=== PATIENT | male | born 1970 | race Two or more races ===

== ENCOUNTER 2016-10-06 11:34 | Inpatient (IN) | payer OTHER ==
[2016-10-06 12:16] VITALS: BMI 24.3
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
[2016-10-06] MEDS ORDERED: guaiFENesin/D-METHORPHAN HB 10 ML UNIT-DOSE CUPS PO PRN (15:16)
[2016-10-06] MEDS ORDERED: chlordiazePOXIDE HCL 25 MG CAPSULE PO PRN (15:16)
[2016-10-06] MEDS ORDERED: MAGNESIUM HYDROX 2400MG/30ML ORAL SUSPENSION 30 ML CUP PO PRN (15:16)
[2016-10-06] MEDS ORDERED: LOPERAMIDE HCL 2 MG CAPSULE PO PRN (15:16)
[2016-10-06] MEDS ORDERED: P-EPHED 60MG/TRIPROLIDI 2.5MG TABLET PO PRN (15:16)
[2016-10-06] MEDS ORDERED: ACETAMINOPHEN 325 MG TABLET (FP) PO PRN (15:16)
[2016-10-06] MEDS ORDERED: MENTHOL/PHENOL 1 EACH UD MM PRN (15:16)
[2016-10-06] MEDS ORDERED: IBUPROFEN 400 MG TABLET (FP) PO PRN (15:16)
[2016-10-06] MEDS ORDERED: hydrOXYzine PAMOATE 25 MG CAPSULE (FP) PO PRN (15:16)
[2016-10-06] MEDS ORDERED: MAGNESIUM CITRATE 300 ML BOTTLE PO PRN (15:16)
[2016-10-06] MEDS ORDERED: METHADONE HCL 10 MG TABLET (FOR DETOX USE ONLY) PO ONE ×2 (17:00→23:00)
[2016-10-06] MEDS: chlordiazePOXIDE HCL 25 MG CAPSULE PO SCH ×2 (17:45→22:23)
[2016-10-06] MEDS: NICOTINE 21 MG/24 HOURS TOPICAL PATCH TD SCH (17:48)
[2016-10-06 19:12] LABS: HIV 1 & 2 AB NEGATIVE; HIV 1 AGp24 NEGATIVE
[2016-10-06] MEDS: THIAMINE HCL 100 MG TABLET (FP) PO SCH (22:24)
[2016-10-06] MEDS: diphenhydrAMINE HCL 50 MG CAPSULE PO PRN (22:24)
[2016-10-06] MEDS: RANITIDINE HCL 150 MG TABLET (FP) PO SCH (22:24)
[2016-10-06 23:59] LABS: URINE APPEARANCE CLEAR; URINE BILIRUBIN NEGATIVE (NEGATIVE); URINE COLOR LTYELLOW; URINE GLUCOSE (UA) NEGATIVE (NEGATIVE); URINE KETONE NEGATIVE (NEGATIVE); URINE LEUK ESTERASE NEGATIVE (NEGATIVE); URINE NITRITE NEGATIVE (NEGATIVE); URINE PROTEIN NEGATIVE (NEGATIVE); URINE UROBILINOGEN NEGATIVE E.U./dl (0.2-1.0)
[2016-10-07] LABS: URINE BLOOD 1+ (NEGATIVE)
[2016-10-07 00:03] LABS: URINE MUCUS RARE; URINE RBC 5 /hpf (0-3); URINE WBC 1 /hpf (3-5)
[2016-10-07] MEDS: chlordiazePOXIDE HCL 25 MG CAPSULE PO SCH ×4 (05:36→22:39)
[2016-10-07] MEDS ORDERED: METHADONE HCL 10 MG TABLET (FOR DETOX USE ONLY) PO SCH (10:00)
--- NOTE | 2016-10-07 10:01 | EKG ---
Test Reason : Blood Pressure : / mmHG Vent. Rate : 074 BPM Atrial Rate : 074 BPM P-R Int : 150 ms QRS Dur : 090 ms QT Int : 400 ms P-R-T Axes : 067 007 020 degrees QTc Int : 444 ms NORMAL SINUS RHYTHM NORMAL ECG NO PREVIOUS ECGS AVAILABLE Confirmed by KIN LOPEZ MD ([id number]) on 10/07/2016 10:00:55 AM Referred By: Haim Lagos Confirmed By:KIN LOPEZ MD
[2016-10-07 10:26] LABS: MCH 27.3 pg (25.7-33.7); MCHC 32.8 g/dl (32.0-35.9); MEAN CELL VOLUME 83.4 fl (80-96); MEAN PLT VOLUME 8.1 fl (7.5-11.1); PLATELET COUNT 302 K/MM3 (134-434); RDW 15.8 % (11.9-15.9); WHITE BLOOD COUNT 10.3 K/mm3 (4.0-10.0)
[2016-10-07 10:43] LABS: ALBUMIN 4.2 g/dl (3.4-5.0); ANION GAP 13 (8-16); BILIRUBIN,TOTAL 0.4 mg/dL (0.2-1.0); CALCIUM 9.3 mg/dL (8.5-10.1); CO2 26 mmol/L (21-32); CREATININE 1.1 mg/dL (0.7-1.3); GLUCOSE,RANDOM 112 mg/dL (74-106); SGOT/AST 14 U/L (15-37); SGPT/ALT 27 U/L (12-78); TOT PROT 7.8 g/dl (6.4-8.2)
[2016-10-07 10:44] LABS: ALK PHOS 59 U/L (45-117)
[2016-10-07] MEDS: RANITIDINE HCL 150 MG TABLET (FP) PO SCH ×2 (10:59→22:38)
[2016-10-07] MEDS: PRENATAL VITAMINS W/ FOLIC ACID TABLET (FP) PO SCH (10:59)
[2016-10-07] MEDS: LORATADINE 10 MG TABLET PO SCH (10:59)
[2016-10-07] MEDS: NICOTINE 21 MG/24 HOURS TOPICAL PATCH TD SCH (11:00)
--- NOTE | 2016-10-07 13:26 | PN ---
[facility] CIWA - CIWA Score Nausea/Vomitin-Mild Nausea/No Vomiting Muscle Tremors: 3 Anxiety: 4-Mod. Anxious/Guarded Agitation: 3 Paroxysmal Sweats: 3 Orientation: 0-Oriented Tacttile Disturbances: 0-None Auditory Disturbances: 0-None Visual Disturbances: 0-None Headache: 0-None Present CIWA-Ar Total Score: 14 S COWS - Scale Resting Pulse: 1= [place] 81-100 Sweatin=Flushed/Facial Moisture Restless Observation: 1= Difficult to Sit Still Pupil Size: 0= Normal to Room Light Bone or Joint Aches: 1= Mild Discomfort Runny Nose/ Eye Tearin= Runny Nose/Eyes GI Upset > 30mins: 2= Nausea/Diarrhea Tremor Observation of Outstretched Hands: 2= Slight Tremor Visible Yawning Observation: 1= 1-2x During Session Anxiety or Irritability: 2=Irritable/Anxious Goose Flesh Skin: 0=Smooth Skin COWS Score: 14 [facility] Progress Note (SOAP) Subjective: Anxiety,tremors,sweating,muscle aches,interrupted sleep,restless. Objective: 10/07/16 13:25 Last Vital Signs Temp Pulse Resp BP Pulse Ox 98.2 F 82 18 134/96 10/07/16 10:00 10/07/16 10:00 10/07/16 10:00 10/07/16 10:00 Laboratory Tests 10/06/16 10/06/16 10/07/16 15:59 20:33 06:10 WBC 10.3 H RBC 5.13 Hgb 14.0 Hct 42.8 MCV 83.4 MCHC 32.8 RDW 15.8 Plt Count 302 MPV 8.1 Sodium Potassium Chloride Carbon Dioxide Anion Gap BUN Creatinine Creat Clearance w eGFR Random Glucose Calcium Total Bilirubin AST ALT Alkaline Phosphatase Total Protein Albumin Urine Color Ltyellow Urine Appearance Clear Urine pH 6.0 Ur Specific [place] < 1.005 L Urine Protein Negative Urine Glucose (UA) Negative Urine Ketones Negative Urine Blood 1+ H Urine Nitrite Negative Urine Bilirubin Negative Urine Urobilinogen Negative Ur Leukocyte Esterase Negative Urine RBC 5 Urine WBC 1 Urine Mucus Rare HIV 1&2 Antibody Screen Negative HIV P24 Antigen Negative 10/07/16 06:10 WBC RBC Hgb Hct MCV MCHC RDW Plt Count MPV Sodium 138 Potassium 3.7 Chloride 99 Carbon Dioxide 26 Anion Gap 13 BUN 13 Creatinine 1.1 Creat Clearance w eGFR > 60 Random Glucose 112 H Calcium 9.3 Total Bilirubin 0.4 AST 14 L ALT 27 Alkaline Phosphatase 59 Total Protein 7.8 Albumin 4.2 Urine Color Urine Appearance Urine pH Ur Specific [place] Urine Protein Urine Glucose (UA) Urine Ketones Urine Blood Urine Nitrite Urine Bilirubin Urine Urobilinogen Ur Leukocyte Esterase Urine RBC Urine WBC Urine Mucus HIV 1&2 Antibody Screen HIV P24 Antigen labs noted Assessment: 10/07/16 13:25 Withdrawal sx. Plan: Continue detox
[2016-10-07] MEDS ORDERED: MOMETASONE FUROATE 110 MCG/IH INHALER IH SCH (13:30)
[2016-10-07] MEDS: FLUTICASONE PROP 0.05% 16 GM NASAL SPRAY NS SCH ×2 (14:30→22:38)
[2016-10-07] MEDS: ALBUTEROL SO4 6.7 GM HFA INHALER IH PRN ×2 (15:37→22:42)
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
[2016-10-07] MEDS: MAG HYDROX/AL HYDROX/SIMETH 30 ML UNIT-DOSE CUP PO PRN (18:16)
[2016-10-07] MEDS: MOMETASONE FUROATE 220 MCG/IH INHALER IH SCH (22:38)
[2016-10-07] MEDS: THIAMINE HCL 100 MG TABLET (FP) PO SCH (22:38)
[2016-10-08] MEDS: diphenhydrAMINE HCL 50 MG CAPSULE PO PRN ×2 (02:12→22:58)
[2016-10-08] MEDS: chlordiazePOXIDE HCL 25 MG CAPSULE PO SCH ×2 (05:55→10:49)
[2016-10-08] MEDS: PRENATAL VITAMINS W/ FOLIC ACID TABLET (FP) PO SCH (10:50)
[2016-10-08] MEDS: RANITIDINE HCL 150 MG TABLET (FP) PO SCH ×2 (10:50→22:56)
[2016-10-08] MEDS: LORATADINE 10 MG TABLET PO SCH (10:50)
[2016-10-08] MEDS: METHADONE HCL 5 MG TABLET (FOR DETOX USE ONLY) PO SCH (10:50)
[2016-10-08] MEDS: NICOTINE 21 MG/24 HOURS TOPICAL PATCH TD SCH (10:53)
[2016-10-08] MEDS: NAPHAZOLINE/PHENIRAMINE OPHTHALMIC 15 ML BOTTLE OU SCH ×4 (11:20→22:56)
[2016-10-08] MEDS: FLUTICASONE PROP 0.05% 16 GM NASAL SPRAY NS SCH ×2 (11:33→22:57)
[2016-10-08] MEDS: ALBUTEROL SO4 6.7 GM HFA INHALER IH PRN ×2 (11:35→17:53)
--- NOTE | 2016-10-08 13:24 | PN ---
[facility] CIWA - CIWA Score Nausea/Vomitin-Mild Nausea/No Vomiting Muscle Tremors: 3 Anxiety: 4-Mod. Anxious/Guarded Agitation: 3 Paroxysmal Sweats: 3 Orientation: 0-Oriented Tacttile Disturbances: 0-None Auditory Disturbances: 0-None Visual Disturbances: 0-None Headache: 0-None Present CIWA-Ar Total Score: 14 [facility] COWS - Scale Resting Pulse: 1= [place] 81-100 Sweatin=Flushed/Facial Moisture Restless Observation: 1= Difficult to Sit Still Pupil Size: 0= Normal to Room Light Bone or Joint Aches: 1= Mild Discomfort Runny Nose/ Eye Tearin= Nasal Congestion GI Upset > 30mins: 2= Nausea/Diarrhea Tremor Observation of Outstretched Hands: 2= Slight Tremor Visible Yawning Observation: 1= 1-2x During Session Anxiety or Irritability: 2=Irritable/Anxious Goose Flesh Skin: 0=Smooth Skin COWS Score: 13 S Progress Note (SOAP) Subjective: Anxiety,tremors,sweating,interrupted sleep,restless,body aches. Objective: 10/08/16 13:22 Last Vital Signs Temp Pulse Resp BP Pulse Ox 97.5 F L 85 18 128/96 10/08/16 10:00 10/08/16 10:00 10/08/16 10:00 10/08/16 10:00 Laboratory Tests 10/06/16 10/06/16 10/07/16 15:59 20:33 06:10 WBC 10.3 H RBC 5.13 Hgb 14.0 Hct 42.8 MCV 83.4 MCHC 32.8 RDW 15.8 Plt Count 302 MPV 8.1 Sodium Potassium Chloride Carbon Dioxide Anion Gap BUN Creatinine Creat Clearance w eGFR Random Glucose Calcium Total Bilirubin AST ALT Alkaline Phosphatase Total Protein Albumin Urine Color Ltyellow Urine Appearance Clear Urine pH 6.0 Ur Specific [place] < 1.005 L Urine Protein Negative Urine Glucose (UA) Negative Urine Ketones Negative Urine Blood 1+ H Urine Nitrite Negative Urine Bilirubin Negative Urine Urobilinogen Negative Ur Leukocyte Esterase Negative Urine RBC 5 Urine WBC 1 Urine Mucus Rare RPR Titer HIV 1&2 Antibody Screen Negative HIV P24 Antigen Negative 10/07/16 10/07/16 06:10 06:10 WBC RBC Hgb Hct MCV MCHC RDW Plt Count MPV Sodium 138 Potassium 3.7 Chloride 99 Carbon Dioxide 26 Anion Gap 13 BUN 13 Creatinine 1.1 Creat Clearance w eGFR > 60 Random Glucose 112 H Calcium 9.3 Total Bilirubin 0.4 AST 14 L ALT 27 Alkaline Phosphatase 59 Total Protein 7.8 Albumin 4.2 Urine Color Urine Appearance Urine pH Ur Specific [place] Urine Protein Urine Glucose (UA) Urine Ketones Urine Blood Urine Nitrite Urine Bilirubin Urine Urobilinogen Ur Leukocyte Esterase Urine RBC Urine WBC Urine Mucus RPR Titer Nonreactive HIV 1&2 Antibody Screen HIV P24 Antigen labs noted Assessment: 10/08/16 13:22 Withdrawal sx Plan: Continue detox
[2016-10-08] MEDS: MAG HYDROX/AL HYDROX/SIMETH 30 ML UNIT-DOSE CUP PO PRN (15:32)
[2016-10-08] MEDS: chlordiazePOXIDE 5 MG CAPSULE PO SCH ×2 (17:50→22:57)
[2016-10-08] MEDS: BACITRACIN 0.9 GM PACKET TP SCH (22:56)
[2016-10-08] MEDS: MOMETASONE FUROATE 220 MCG/IH INHALER IH SCH (22:56)
[2016-10-08] MEDS: THIAMINE HCL 100 MG TABLET (FP) PO SCH (22:57)
[2016-10-09] MEDS: chlordiazePOXIDE 5 MG CAPSULE PO SCH ×2 (05:59→11:09)
--- NOTE | 2016-10-09 11:02 | PN ---
[facility] Progress Note (SOAP) Subjective: ALERT,IRRITABLE,INTERRUPTED SLEEP Objective: 10/09/16 11:01 Vital Signs Temperature 98.1 F 10/09/16 10:00 Pulse Rate 98 H 10/09/16 10:00 Respiratory Rate 18 10/09/16 10:00 Blood Pressure 138/98 10/09/16 10:00 O2 Sat by Pulse Oximetry (%) Assessment: 10/09/16 11:01 WITHDRAWAL SYMPTOM Plan: DISCHARGE IN AM
[2016-10-09] MEDS: PRENATAL VITAMINS W/ FOLIC ACID TABLET (FP) PO SCH (11:09)
[2016-10-09] MEDS: BACITRACIN 0.9 GM PACKET TP SCH ×2 (11:09→22:32)
[2016-10-09] MEDS: RANITIDINE HCL 150 MG TABLET (FP) PO SCH ×2 (11:09→22:33)
[2016-10-09] MEDS: LORATADINE 10 MG TABLET PO SCH (11:09)
[2016-10-09] MEDS: METHADONE HCL 5 MG TABLET (FOR DETOX USE ONLY) PO SCH (11:10)
[2016-10-09] MEDS: FLUTICASONE PROP 0.05% 16 GM NASAL SPRAY NS SCH ×2 (11:10→22:32)
[2016-10-09] MEDS: NICOTINE 21 MG/24 HOURS TOPICAL PATCH TD SCH (11:10)
--- NOTE | 2016-10-09 11:10 | PN ---
[facility] Progress Note Note: ADDENDUM PATIENT REQUESTED TO SEE PSYCHIATRIST FOR ANXIETY AND DEPRESSION, PSYCHIATRIST FOR REEVALUATION
[2016-10-09] MEDS: NAPHAZOLINE/PHENIRAMINE OPHTHALMIC 15 ML BOTTLE OU SCH ×4 (11:15→22:33)
[2016-10-09] MEDS: MAG HYDROX/AL HYDROX/SIMETH 30 ML UNIT-DOSE CUP PO PRN (13:31)
--- NOTE | 2016-10-09 15:56 | PN ---
Psychiatric Progress Note Vital Signs: Vital Signs Period Temp Pulse Resp BP Sys/Alfonso Pulse Ox Last 24 Hr 97.3 F-98.1 F 69-98 18-20 118-142/71-98 Date of Session: 10/09/16 Chief Complaint:: Depressed mood HPI: Patient reports having depression even oprior to starting use street drugs , he wants to start SSRI as soon he is medically cleared Current Medications: Active Medications Generic Name Dose Route Start Last Admin Trade Name Freq PRN Reason Stop Dose Admin Acetaminophen 650 mg 10/06/16 15:16 Tylenol - PO Q4H PRN FEVER OR PAIN Al Hydroxide/Mg Hydroxide 30 ml 10/06/16 15:16 10/09/16 13:31 Mylanta Oral Suspension - PO 30 ml Q6H PRN Administration DYSPEPSIA Albuterol Sulfate 2 puff 10/06/16 15:25 10/08/16 17:53 Ventolin Hfa Inhaler - IH 2 inhaler Q4H PRN Administration WHEEZING Bacitracin 0.9 gm 10/08/16 22:00 10/09/16 11:09 Bacitracin - TP 0.9 gm BID ANNIE Administration Chlordiazepoxide HCl 10 mg 10/09/16 17:00 Librium - PO 10/10/16 11:01 [id number] ANNIE Diphenhydramine HCl 50 mg 10/06/16 15:16 10/08/16 22:58 Benadryl - PO 50 mg HSMR1 PRN Administration INSOMNIA Eucalyptus/Menthol/Phenol/Sorbitol 1 each 10/06/16 15:16 Cepastat Lozenge - MM Q4H PRN SORE THROAT Fluticasone Propionate 1 spray 10/07/16 13:45 10/09/16 11:10 Flonase - NS 1 spray BID ANNIE Administration Guaifenesin 10 ml 10/06/16 15:16 Robitussin Dm - PO Q6H PRN COUGH Hydroxyzine Pamoate 25 mg 10/06/16 15:16 Vistaril - PO Q4H PRN AGITATION Ibuprofen 400 mg 10/06/16 15:16 Motrin - PO Q6H PRN SEVERE PAIN Loperamide HCl 4 mg 10/06/16 15:16 Imodium - PO Q6H PRN DIARRHEA Loratadine 10 mg 10/07/16 10:00 10/09/16 11:09 Claritin - PO 10 mg DAILY ANNIE Administration Magnesium Citrate 300 ml 10/06/16 15:16 Citroma - PO Q48H PRN CONSTIPATION Magnesium Hydroxide 30 ml 10/06/16 15:16 Milk Of Magnesia - PO DAILY PRN CONSTIPATION Methadone HCl 10 mg 10/10/16 10:00 Dolophine - PO 10/10/16 10:01 DAILY ANNIE Methadone HCl 5 mg 10/11/16 06:00 Dolophine - PO 10/11/16 06:01 DAILY@0600 ANNIE Mometasone Furoate 0 puff 10/07/16 22:00 10/08/16 22:56 Asmanex 220mcg - IH 1 puff HS ANNIE Administration Naphazoline HCl/Pheniramine Maleate 1 drop 10/08/16 10:00 10/09/16 15:34 Visine-A - OU 1 drop QID ANNIE Administration Nicotine 21 mg 10/06/16 17:00 10/09/16 11:10 Nicoderm Patch - TD 21 mg DAILY ANNIE Administration Multivit/Folic Acid/Iron 1 tab 10/07/16 10:00 10/09/16 11:09 Vitamins ([facility]) - PO 1 tab DAILY ANNIE Administration Pseudoephedrine/Triprolidine 1 combo 10/06/16 15:16 10/09/16 15:37 Actifed - PO 1 combo TID PRN Administration NASAL CONGESTION Ranitidine HCl 150 mg 10/06/16 22:00 10/09/16 11:09 Zantac - PO 150 mg BID ANNIE Administration Thiamine HCl 100 mg 10/06/16 22:00 10/08/16 22:57 Vitamin B1 - PO 100 mg HS ANNIE Administration Medication(s) Change(s): none Mental Status Exam - Mental Status Exam Alert and Oriented to: Person Cognitive Function: Fair Patient Appearance: Well Groomed Mood: Sad Affect: Mood Congruent Patient Behavior: Cooperative Speech Pattern: Appropriate Voice Loudness: Normal Thought Process: Goal Oriented Thought Disorder: Being Controlled Hallucinations: Denies Suicidal Ideation: Denies Homicidal Ideation: Denies Insight/Judgement: Fair Sleep: Difficulty falling asleep Appetite: Fair Muscle strength/Tone: Normal Gait/Station: Normal Additional Comments: Observation. Detox Unit Care Protocol Psychiatric Treatment Plan - Problem List (1) Alcohol dependence with uncomplicated withdrawal Current Visit: Yes (2) Amphetamine abuse Current Visit: Yes (3) Heroin dependence Current Visit: Yes (4) Marihuana dependence Current Visit: Yes (5) Nicotine dependence Current Visit: Yes (6) Substance induced mood disorder Current Visit: Yes Initial treatment plan: Observation. Detox Unit Care Protocol. Outpatient substance abuse center recommended upon discharge
[2016-10-09] MEDS: chlordiazePOXIDE HCL 10 MG CAPSULE PO SCH ×2 (17:45→22:33)
[2016-10-09] MEDS: ALBUTEROL SO4 6.7 GM HFA INHALER IH PRN (17:47)
[2016-10-09] MEDS: MOMETASONE FUROATE 220 MCG/IH INHALER IH SCH (22:32)
[2016-10-09] MEDS: diphenhydrAMINE HCL 50 MG CAPSULE PO PRN (22:33)
[2016-10-09] MEDS: THIAMINE HCL 100 MG TABLET (FP) PO SCH (22:33)
[2016-10-10] MEDS: chlordiazePOXIDE HCL 10 MG CAPSULE PO SCH ×2 (06:10→10:40)
[2016-10-10] MEDS ORDERED: METHADONE HCL 10 MG TABLET (FOR DETOX USE ONLY) PO SCH (10:00)
[2016-10-10] MEDS: NICOTINE 21 MG/24 HOURS TOPICAL PATCH TD SCH (10:38)
[2016-10-10] MEDS: FLUTICASONE PROP 0.05% 16 GM NASAL SPRAY NS SCH ×2 (10:39→22:32)
[2016-10-10] MEDS: ALBUTEROL SO4 6.7 GM HFA INHALER IH PRN (10:39)
[2016-10-10] MEDS: BACITRACIN 0.9 GM PACKET TP SCH ×2 (10:40→22:31)
[2016-10-10] MEDS: LORATADINE 10 MG TABLET PO SCH (10:40)
[2016-10-10] MEDS: RANITIDINE HCL 150 MG TABLET (FP) PO SCH ×2 (10:40→22:31)
[2016-10-10] MEDS: PRENATAL VITAMINS W/ FOLIC ACID TABLET (FP) PO SCH (10:40)
[2016-10-10] MEDS: NAPHAZOLINE/PHENIRAMINE OPHTHALMIC 15 ML BOTTLE OU SCH ×4 (10:40→22:32)
--- NOTE | 2016-10-10 11:40 | PN ---
S Progress Note (SOAP) Subjective: ALERT,IRRITABLE,ANXIOUS,INTERRUPTED SLEEP Objective: 10/10/16 11:39 Vital Signs Temperature 97.9 F 10/10/16 09:35 Pulse Rate 89 10/10/16 09:35 Respiratory Rate 18 10/10/16 09:35 Blood Pressure 135/91 10/10/16 09:35 O2 Sat by Pulse Oximetry (%) Assessment: 10/10/16 11:39 WITHDRAWAL SYMPTOM Plan: CONTINUE DETOX,DISCHARGE IN AM
[2016-10-10] MEDS: THIAMINE HCL 100 MG TABLET (FP) PO SCH (22:31)
[2016-10-10] MEDS: MOMETASONE FUROATE 220 MCG/IH INHALER IH SCH (22:32)
[2016-10-10] MEDS: diphenhydrAMINE HCL 50 MG CAPSULE PO PRN (22:33)
[2016-10-11] MEDS ORDERED: METHADONE HCL 5 MG TABLET (FOR DETOX USE ONLY) PO SCH (06:00)
--- NOTE | 2016-10-11 08:20 | PN ---
S Progress Note (SOAP) Subjective: ALERT,NO COMPLAINT Objective: 10/11/16 08:19 Vital Signs Temperature 97.5 F L 10/11/16 06:10 Pulse Rate 58 L 10/11/16 06:10 Respiratory Rate 18 10/11/16 06:10 Blood Pressure 142/77 10/11/16 06:10 O2 Sat by Pulse Oximetry (%) Assessment: 10/11/16 08:19 DETOX COMPLETED,NO WITHDRAWAL SYMPTOM Plan: DISCHARGE TODAY,FOLLOW UP WITH AFTER CARE PROGRAM ARRANGEMENT
--- NOTE | 2016-10-11 08:24 | DS ---
[facility] Detox Discharge Summary Admission Date: 10/06/16 Discharge Date: 10/11/16 - History Present History: Alcohol Dependence Additional Comments: FOLLOW UP WITH AFTER CARE PROGRAM ARRANGEMENT Pertinent Past History: ASTHMA GERD DIVERTICULITIS S/P EXPLORATORY LAPAROTOMY FRACTURE OF RIGHT ANKLE HISTORY - Physical Exam Results Vital Signs: Vital Signs Temperature 97.5 F L 10/11/16 06:10 Pulse Rate 58 L 10/11/16 06:10 Respiratory Rate 18 10/11/16 06:10 Blood Pressure 142/77 10/11/16 06:10 O2 Sat by Pulse Oximetry (%) Pertinent Admission Physical Exam Findings: WITHDRAWAL SYMPTOM - Treatment Hospital Course: Detox Protocol Followed, Detoxed Safely, Responded well, Discharged Condition Good Patient has Accepted a Rehab Referral to: [facility] - Medication Discharge Medications: Ambulatory Orders Albuterol Sulfate [Proventil HFA Inhaler -] 1 - 2 inh PO QID PRN 10/06/16 Fluticasone Propionate [Flovent Diskus] 100 mcg IH DAILY 10/06/16 Loratadine [Claritin -] 10 mg PO DAILY 10/06/16 Ranitidine [Zantac -] 150 mg PO BID 10/06/16 Triamcinolone Acetonide [Nasal Allergy] 16.9 ml NS DAILY 10/06/16 - Diagnosis (1) Alcohol dependence with uncomplicated withdrawal Current Visit: Yes Status: Acute (2) Asthma Current Visit: Yes Status: Chronic (3) GERD (gastroesophageal reflux disease) Current Visit: Yes Status: Chronic (4) Diverticulitis Current Visit: Yes Status: Chronic (5) Exploratory laparotomy scar Current Visit: Yes Status: Acute (6) H/O exploratory laparotomy Current Visit: Yes Status: Acute (7) Nicotine dependence Current Visit: Yes Status: Acute (8) Weight loss Current Visit: Yes Status: Acute (9) Fracture of right ankle Current Visit: Yes Status: Chronic (10) Fracture, ankle Current Visit: Yes Status: Acute - AMA Did Patient Leave Against Medical Advice: No
[2016-10-11 09:44] VITALS: BP 131/96; PULSE 80; TEMP 97.4
[2016-10-11] MEDS: PRENATAL VITAMINS W/ FOLIC ACID TABLET (FP) PO SCH (10:02)
[2016-10-11] MEDS: BACITRACIN 0.9 GM PACKET TP SCH (10:02)
[2016-10-11] MEDS: FLUTICASONE PROP 0.05% 16 GM NASAL SPRAY NS SCH (10:02)
[2016-10-11] MEDS: LORATADINE 10 MG TABLET PO SCH (10:02)
[2016-10-11] MEDS: RANITIDINE HCL 150 MG TABLET (FP) PO SCH (10:02)
[2016-10-11] MEDS: NICOTINE 21 MG/24 HOURS TOPICAL PATCH TD SCH (10:04)
[2016-10-11] MEDS: NAPHAZOLINE/PHENIRAMINE OPHTHALMIC 15 ML BOTTLE OU SCH (10:04)
== END 2016-10-11 10:41 | disposition home or self-care (01) | DRG 773 ==
LOC: YASAS 11:34 → Y6N 15:31
PROVIDERS: ADMIT Internal Medicine; ATTEND Internal Medicine
PROC: HZ2ZZZZ Detoxification Services for Substance Abuse Treatment (ICD-10-PCS; principal; 2016-10-06)
DX: F10.230 Alcohol dependence with withdrawal, uncomplicated (principal); F11.23 Opioid dependence with withdrawal; F12.20 Cannabis dependence, uncomplicated; F15.10 Other stimulant abuse, uncomplicated; F19.24 Other psychoactive substance dependence with psychoactive substance-induced mood disorder; F17.210 Nicotine dependence, cigarettes, uncomplicated; J45.909 Unspecified asthma, uncomplicated; K21.9 Gastro-esophageal reflux disease without esophagitis; K57.92 Diverticulitis of intestine, part unspecified, without perforation or abscess without bleeding; Z87.81 Personal history of (healed) traumatic fracture; Z87.898 Personal history of other specified conditions
CPT/HCPCS: 36415; 80053; 81003; 81015; 85027; 86593; 87389; 93005; 93010